=== PATIENT | male | born 1970 | race African-American/Black ===

== ENCOUNTER 2017-05-10 08:46 | Emergency (ER) | payer SELFPAY | END 2017-05-10 09:49 | disposition home or self-care (01) | LOC: NEPD 08:46 | DX: H65.92 Unspecified nonsuppurative otitis media, left ear (principal); H61.22 Impacted cerumen, left ear; J45.909 Unspecified asthma, uncomplicated; Z72.0 Tobacco use | CPT/HCPCS: 69210; 99283-25 ==